=== PATIENT | female | born 2000 | race Caucasian/White ===

== ENCOUNTER 2020-12-02 09:43 | Emergency (ER) | payer OTHER ==
[~2020-12-02] VITALS: Ht 162.6 cm; Wt 83.9 kg
[2020-12-02 09:56] VITALS: Ht 162.6 cm; Wt 83.9 kg
[2020-12-02 11:00] LABS: BASOPHIL % 0.7 % (0.2-1.3)
[2020-12-02 11:05] LABS: PLATELET COUNT 440 x10^3mcL (179-408); RED CELL DISTRIBUTION WIDTH 14.7 % (12.3-17.7)
[2020-12-02 11:11] LABS: CALCIUM 8.2 mg/dL (8.5-10.1); CARBON DIOXIDE 27.9 mmol/L (21-32); CHLORIDE SERUM 101 mmol/L (98-107); CREATININE SERUM 0.8 mg/dL (0.6-1.0); GFR1 > 60 mL/min; GLUCOSE SERUM 81 mg/dL (74-106); SODIUM SERUM 139 mmol/L (136-145)
[2020-12-02 11:15] LABS: ALBUMIN 3.4 g/dL (3.4-5.0); ALKALINE PHOSPHATASE 72 U/L (46-116); ALT/SGPT 18 U/L (14-59); AST/SGOT 11 U/L (15-37); BILIRUBIN TOTAL 0.55 mg/dL (0.20-1.00)
[2020-12-02] MEDS ORDERED: IBU600 M2 PO (12:23)
[2020-12-02 12:41] VITALS: BP 111/68
== END 2020-12-02 12:41 | disposition home or self-care (01) ==
LOC: ED 09:43
PROVIDERS: Emergency Medicine
DX: J45.909 Unspecified asthma, uncomplicated (principal); R09.1 Pleurisy